=== PATIENT | female | born 1945 | race Caucasian/White ===

== ENCOUNTER → 2017-12-03 | Day surgery (SDC) | payer OTHER ==
[~2017-12-03] VITALS: Ht 152.4 cm; Wt 81.6 kg
[~2017-12-03] MED LIST: AMITRIPTYLINE H25 M2 PO; AMLODIPINE BESY10 M1 PO; ATORVASTATIN CA20 M1 PO; BIOTIN800 MCG PO; COZAAR50 M1 PO; ESCITALOPRAM OX10 MG PO; MOBIC7.5 M1 PO; SYNTHROID50 MCG PO; VITAMIN D2000 UNIT PO
--- NOTE | 2017-12-08 14:51 | Operative Report ---
Operative/Inv Procedure Report Surgery Date: 12/03/17 Name of Procedure: Excision of 2 skin lesions with layered intermediate complexity closure totaling 2.2 cm #1 Left ear keloid, measuring 1.2 cm #2 left cheek skin lesion measuring 1 cm Pre-Operative Diagnosis: Left face and ear skin lesions Post-Operative Diagnosis: Same, probable keloid on ear, possible skin cancer on face Estimated Blood Loss: scant Surgeon/Supply Chain Logistics Manager: Chiquita AUSTIN,Ankit Nobles Anesthesia: general endotracheal tube Operative/Procedure Note Note: Patient was positioned supine after successful induction of general anesthesia the left side of her face and ear were clipped prepped and draped in usual sterile fashion. We approached the keloid first it was not in the earlobe was higher up on the helix based posteriorly with a small spot anteriorly injected local anesthetic that did not contain epinephrine and made an elliptical incision through normal surrounding skin grossly carried that through deeper trying to stay off the lesion carrying it through full-thickness to the anterior spot, wherever possible cautery was used for hemostasis in this small area, the resulting defect was reapproximated in layers using 5-0 Vicryl sutures deep interrupted in a 5-0 nylon suture for the skin itself interrupted, Regarding the face lesion was high up on the cheek we infiltrated local anesthetic into an elliptical incision around the palpable lesion with a margin of grossly uninvolved skin, oriented along Langers lines, made the 1 cm elliptical incision with a 15 blade deepened it to the subcutaneous fat came up underneath excising in one piece with gross negative margins. Reapproximated the excision site layered with 3 interrupted Vicryl sutures 5-0 deep followed by a running 5-0 nylon for the skin itself, followed by some baci and bandaids. EBL minimal lap and sponge counts correct wound expectancy clean IV fluids crystalloid complications none patient tolerated the procedure well was extubated and returned to recovery room in satisfactory condition.
== END ==
LOC: STS 02:36
DX: L91.0 Hypertrophic scar (principal); L57.0 Actinic keratosis; I10 Essential (primary) hypertension; E03.9 Hypothyroidism, unspecified
CPT/HCPCS: 88305; J0690; J1100; J2250; J2405